=== PATIENT | male | born 1960 | race Caucasian/White ===

== ENCOUNTER 2020-02-20 23:59 | Observation (INO) ==
[2020-02-21] MEDS ORDERED: Furosemide 40 MG/4 ML VIAL IVP ONE (00:20)
[2020-02-21 00:47] LABS: Basophils # 0.1 K/mcL (0.0-0.2); Basophils % 0.6 %; Eosinophils # 0.2 K/mcL (0.0-0.6); Eosinophils % 2.4 %; Hematocrit 31.4 % (37.5-50.1); Hemoglobin 10.5 g/dL (12.9-16.9); Immature Granulocytes % 0.6 % (0-4); Lymphocytes # 1.4 K/mcL (0.6-4.6); Lymphocytes % 17.1 %; Mean Corpuscular HGB Conc 33.4 g/dL (31.6-35.5); Mean Corpuscular Hemoglobin 31.8 pg (28.0-33.3); Mean Corpuscular Volume 95.2 fL (83.0-100.0); Mean Platelet Volume 12.8 fL (9.4-12.4); Monocytes # 0.8 K/mcL (0.0-1.3); Monocytes % 9.2 %; Neutrophils # 5.8 K/mcL (1.6-8.9); Platelet Count 177 K/mcL (140-400); Segmented Neutrophils % 70.1 %; White Blood Count 8.3 K/mcL (4.3-11.1)
[2020-02-21 00:53] LABS: INR 2.1; Prothrombin Time 24.2 Seconds (9.4-12.1)
[2020-02-21 00:56] LABS: Activated Partial Thrombo Time 44.3 Seconds (26.0-36.0)
[2020-02-21 01:04] LABS: Troponin I 0.03 ng/mL (< 0.04)
[2020-02-21 01:05] LABS: Albumin 4.3 g/dL (3.5-5.7); Albumin/Globulin Ratio 1.1 (1.1-2.2); Calcium 9.7 mg/dL (8.6-10.3); Potassium 4.2 mEq/L (3.5-5.1); Total Protein 8.3 g/dL (6.4-8.9)
[2020-02-21] MEDS ORDERED: ceFAZolin 1,000 MG in Water for inj. (sterile) 10 ML IVP ONE (01:07)
[2020-02-21 01:26] LABS: Bilirubin,Urine Negative (Negative); Blood,Urine Trace-intact (Negative); Clarity,Urine Slightly Cloudy (Clear); Glucose,Urine (UA) Normal (Normal); Ketones,Urine Negative (Negative); Leukocyte Esterase,Urine Negative (Negative); Nitrite,Urine Negative (Negative); PH,Urine 6.5 pH Units (5.0-8.0); Protein,Urine 30 mg/dL (Neg-Trace); Urobilinogen,Urine Normal (Normal)
[2020-02-21 01:36] LABS: Color,Urine Yellow (Yellow)
[2020-02-21 01:37] LABS: Amorphous Sediment,Urine Few per hpf (None-Few); RBC,Urine 0-3 per hpf (0-3)
[2020-02-21] MEDS ORDERED: Naloxone 0.4 MG/ML INJ IVP PRN (04:30)
[2020-02-21] MEDS ORDERED: INSULIN ASPART 10 UNIT SQ PRN (04:30)
[2020-02-21] MEDS ORDERED: Budesonide/Formoterol 80/4.5 1 PUFF INH IH PRN (04:30)
[2020-02-21] MEDS ORDERED: Furosemide 40 MG/4 ML VIAL IVP STA (04:30)
[2020-02-21] MEDS ORDERED: *HR* Dextrose 50 % in Water (Vial) 50 ML VIAL IVP PRN (05:49)
[2020-02-21] MEDS ORDERED: Dextrose Gel 15 GM/37.5 ML TUBE PO PRN ×2 (05:49)
[2020-02-21] MEDS ORDERED: D5% in Water 1,000 ML IVC PRN (05:49)
[2020-02-21] MEDS ORDERED: Levothyroxine 25 MCG TABLET PO SCH (06:30)
[2020-02-21] MEDS ORDERED: *HR* Glimepiride 4 MG TABLET PO SCH (07:30)
[2020-02-21] MEDS ORDERED: carvediloL 6.25 MG TABLET PO SCH (08:00)
[2020-02-21] MEDS ORDERED: ceFAZolin 1,000 MG in Water for inj. (sterile) 10 ML IVP SCH (08:00)
[2020-02-21] MEDS: hydrALAZINE 25 MG TABLET PO SCH ×2 (08:42→14:59)
[2020-02-21] MEDS ORDERED: Gabapentin 400 MG CAPSULE PO SCH ×3 (09:00)
[2020-02-21] MEDS ORDERED: Magnesium Oxide 400 MG TABLET PO SCH (09:00)
[2020-02-21] MEDS ORDERED: lisinopriL 5 MG TABLET PO SCH (09:00)
[2020-02-21] MEDS ORDERED: ISOSORBIDE MONONITRATE 20 MG PO SCH (09:00)
[2020-02-21] MEDS ORDERED: allopurinoL 300 MG TABLET PO SCH (09:00)
[2020-02-21] MEDS ORDERED: Cholecalciferol (D-3) 1,000 UNIT (25MCG) TABLET PO SCH (09:00)
[2020-02-21] MEDS: Insulin LISPRO 300 UNITS/3 ML VIAL SQ SCH ×2 (09:09→11:43)
[2020-02-21] MEDS ORDERED: Furosemide 40 MG TABLET PO SCH ×2 (12:15→18:00)
[2020-02-21 14:59] VITALS: BP 159/75
[2020-02-21] MEDS ORDERED: *HR* Warfarin 3 MG TABLET PO SCH (18:00)
[2020-02-21] MEDS ORDERED: Insulin DETEMIR 100 UNIT/ML X5UNITS SQ SCH (21:00)
[2020-02-22] MEDS ORDERED: Furosemide 40 MG TABLET PO SCH (09:00)
== END 2020-02-21 15:05 | disposition home or self-care (01) ==
LOC: EMEROOGRE 23:59 → INPGRE 23:59
PROVIDERS: ADMIT Internal Medicine; ATTEND Internal Medicine